=== PATIENT | female | born 1965 | race Two or more races ===

== ENCOUNTER 2022-11-03 11:15 | Inpatient (IN) | payer OTHER ==
[~2022-11-03] VITALS: Ht 162.6 cm; Wt 77.1 kg
== END 2022-11-11 13:56 | disposition home or self-care (01) | DRG 376 ==
LOC: SURH 11-10 07:00 → O/R 11-10 07:32 → SURH 11-10 11:15
PROVIDERS: ADMIT Colon & Rectal Surgery; ATTEND Colon & Rectal Surgery
PROC: 0DJD8ZZ Inspection of Lower Intestinal Tract, Via Natural or Artificial Opening Endoscopic (ICD-10-PCS; 2022-11-10)
PROC: 0DBP8ZZ Excision of Rectum, Via Natural or Artificial Opening Endoscopic (ICD-10-PCS; principal; 2022-11-10 07:00)
DX: C21.1 Malignant neoplasm of anal canal (principal); D12.9 Benign neoplasm of anus and anal canal; Z20.822 Contact with and (suspected) exposure to COVID-19
CPT/HCPCS: 0184T; 45300; 45123

== ENCOUNTER 2025-04-25 06:00 | Day surgery (SDC) | payer OTHER ==
[~2025-04-25 06:00] MED LIST: BRIMONIDINE TART5 ML OPHT; EZALLOR SPRINKL20 MG PO; RECLAST 55 MG/100 M; VITAMIN D; XELPROS2.5 ML OP
[2025-04-25] MEDS ORDERED: CEFTRIAXONE SODIUM 2,000 MG VIAL ONE (06:48)
[2025-04-25] MEDS ORDERED: METRONIDAZOLE/SODIUM CHLORIDE 500 MG/100 ML PIGGYBACK IV ONE (06:49)
[2025-04-25] MEDS ORDERED: DIBUCAINE 30 GM TUBE ONE (07:22)
[2025-04-25] MEDS ORDERED: BUPIVACAINE HCL/MPF 0.5% 30ML VIAL ONE (07:22)
[2025-04-25] MEDS ORDERED: LIDOCAINE HCL 1%/EPINEPHRINE 20ML VIAL IJ ONE (07:23)
[2025-04-25] MEDS ORDERED: HEMOSTATIC MATRIX 1 KIT KIT TOP ONE (07:23)
[2025-04-25] MEDS ORDERED: POVIDONE-IODINE 118 ML BOTT TOP ONE (07:23)
== END 2025-04-25 12:55 | disposition home or self-care (01) ==
LOC: CIR.AMB 06:00
PROVIDERS: ATTEND Colon & Rectal Surgery
DX: C20 Malignant neoplasm of rectum (principal); D12.8 Benign neoplasm of rectum